=== PATIENT | male | born 1955 | race Caucasian/White ===

== ENCOUNTER → 2016-04-28 | Day surgery (SDC) | payer MEDICARE ==
[~2016-04-28] MED LIST: AMLO10TA5 PO; ATEN100T PO; ATOR20TA PO; CHOL200025 PO; CLOB15CR3 TOP; COLC0.6C3 PO; DESO15OI TOP; FENO145T19 PO; FUR20 PO; INSU100V7 SUBQ; Losartan PO; MTH10T PO; PIOG30TA2 PO; TERB250T4 PO; TEST5GEL2 TD; VENL75TA3 PO
[2016-04-28 14:00] VITALS: BP 168/82; PULSE 63; RESP 20; O2SAT 99
[2016-04-28 14:10] VITALS: BP 154/84; PULSE 62; O2SAT 93
[2016-04-28 14:15] VITALS: BP 148/83; PULSE 61; O2SAT 96
[2016-04-28 14:25] VITALS: BP 151/72; PULSE 61; O2SAT 94
--- NOTE | 2016-04-28 14:45 | NUR ---
Phlebotomy: Pt arrived to [facility] for phlebotomy treatment. One unit (450cc) blood removed as ordered. Pt tolerated treatment well. Pt left the unit ambulatory in stable condition after about 10 minutes of rest.
== END | disposition home or self-care (01) ==
LOC: MOCO 04-25 08:33
PROVIDERS: ATTEND Internal Medicine Hematology & Oncology
DX: E83.118 Other hemochromatosis (principal)